=== PATIENT | female | born 1945 | race Caucasian/White ===

== ENCOUNTER 2020-11-14 11:49 | Emergency (ER) | payer MEDICARE, OTHER ==
[2020-11-14] MEDS: Sodium Chloride 0.9% 10 ML Syringe FLUSH PRN ×4 (11:57→13:25)
[2020-11-14 12:23] LABS: CHLORIDE,CL 102 mmol/L (98-107); SODIUM,NA 141 mmol/L (136-145)
[2020-11-14] MEDS ORDERED: levETIRAcetam 1,000 MG in Sodium Chloride 0.9% 100 ML IV ONE (12:37)
--- NOTE | 2020-11-14 12:58 | EDM.PDOC ---
ED HPI GENERAL MEDICAL PROBLEM - General Chief Complaint: Neurological Problem Stated Complaint: seizures Time Seen by Provider: 11/14/20 12:04 Source of Information: Reports: Patient, Family, Old Records History Limitations: Reports: No Limitations - History of Present Illness INITIAL COMMENTS - FREE TEXT/NARRATIVE: Patient referred to ER from [facility] due to history of recent uptick in seizures. Diagnosed with Epilepsy at age of 10 per self report. Reports absence seizures and myoclonic jerks. Was seen by Neuro at [place] last fall for her Epilepsy. Currently managed on combination of Primidone, Depakote, and Keppra. Daughter reports more frequent seizure activity noted over last few weeks. 15- 20 brief 30 second episodes yesterday witnessed by daughter were pt tensed up/clenched hands. Approx 10 more episodes witnessed today. Noted that patient was getting a bit confused with medications this past week and missed a few of her medications on some days. No reported other changes in health, such as trauma/signs of infection/fevers. Daughter cannot say if the recent witnessed seizure episodes are similar to ones experienced by patient in past as she r laura did not see her mother actually have seizures much at all previously. Other changes reported by patient include some numbness sensation in left lower leg/knee as well as some visual changes this past week. - Related Data Allergies Allergy/AdvReac Type Severity Reaction Status Date / Time No Known Allergies Allergy Verified 11/14/20 11:50 Home Meds: Home Meds Primidone [Mysoline] 500 mg PO BID 02/07/14 [History] levETIRAcetam [Keppra] 1,500 mg PO BID 02/07/14 [History] Cholecalciferol (Vitamin D3) [Vitamin D3] 02/09/14 [History] Multivitamin [Multi-Vitamin Daily] 02/09/14 [History] Vitamin B Complex 02/09/14 [History] Calcium Carbonate [Calcium] 600 mg PO DAILY 11/14/20 [History] Divalproex Sodium [Divalproex Sodium ER] 500 mg PO BID 11/14/20 [History] Vit A/Vit C/Vit E/Zinc/Copper [Preservision] 1 tab PO DAILY 11/14/20 [History] Past Medical History HEENT History: Reports: Impaired Vision, Other (See Below) Other HEENT History: wears reading glasses [employer] History: Reports: Neurological History: Reports: Seizure - Infectious Disease History Infectious Disease History: Reports: Chicken Pox, Measles, Mumps - Past Surgical History HEENT Surgical History: Reports: Cataract Surgery Other HEENT Surgeries/Procedures: rt eye cataract surgery GI Surgical History: Reports: Cholecystectomy Female Surgical History: Reports: Tubal Ligation Social & Family History - Tobacco Use Tobacco Use Status *Q: Never Tobacco User Second Hand Smoke Exposure: No - Caffeine Use Caffeine Use: Reports: Coffee, Soda, Tea Caffeine Use Comment: ice tea, diet coke and coffee - Recreational Drug Use Recreational Drug Use: No ED ROS GENERAL - Review of Systems Review Of Systems: Comprehensive ROS is negative, except as noted in HPI. ED EXAM, GENERAL - Physical Exam Exam: See Below Exam Limited By: No Limitations General Appearance: Alert, No Apparent Distress, Obese Eye Exam: Bilateral Eye: EOMI Ears: Normal External Exam, Hearing Grossly Normal Nose: No: Nasal Deformity, Nasal Swelling, Nasal Drainage Throat/Mouth: Normal Lips, Normal Voice, No Airway Compromise Head: Atraumatic, Normocephalic Neck: Supple, Non-Tender, Full Range of Motion Respiratory/Chest: No Respiratory Distress, Lungs Clear, Normal Breath Sounds, No Accessory Muscle Use, Chest Non-Tender Cardiovascular: Regular Rate, Rhythm GI/Abdominal: Normal Bowel Sounds, Soft, Non-Tender, No Distention (Female) Exam: Deferred Rectal (Female) Exam: Deferred Back Exam: No: CVA Tenderness (L), CVA Tenderness (R), Muscle Spasm, Paraspinal Tenderness, Vertebral Tenderness Extremities: Non-Tender, Normal Capillary Refill. No: Marry's Sign, Leg Pain, Limited Range of Motion, Increased Warmth, Mottled, Pallor, Redness Neurological: Alert, Oriented, CN II-XII Intact, Normal Cognition, Other (appears to have equal tone/strength on exam. +1 DTRs lower extremities. Subjective decreased sensation around left knee. ) Psychiatric: Normal Affect, Normal Mood Skin Exam: Warm, Dry, Intact, Normal Color Course - Vital Signs Last Recorded V/S: Last Vital Signs Temp 36.1 C 11/14/20 11:51 Pulse 82 11/14/20 12:10 Resp 20 11/14/20 12:10 BP 101/45 L 11/14/20 12:10 Pulse Ox 94 L 11/14/20 12:10 - Orders/Labs/Meds Orders: Active Orders 24 hr Category Date Time Status UA W/MICROSCOPIC [URIN] Stat Lab 11/14/20 12:08 Ordered Magnesium Sulfate/D5W [Magnesium Sulfate in D5W 100 Med 11/14/20 12:28 Ordered Premix] 1 gm Premix Bag 1 bag IV ONETIME Sodium Chloride 0.9% [Saline Flush] Med 11/14/20 11:50 Active 10 ml FLUSH ASDIRECTED PRN levETIRAcetam [Keppra] 1,000 mg Med 11/14/20 12:37 Active Sodium Chloride 0.9% [Normal Saline] 100 ml IV ONETIME Saline Lock Insert [OM.PC] Routine Oth 11/14/20 11:50 Ordered Medication Orders Magnesium Sulfate/Dextrose 1 (gm/ Premix) 100 mls @ 100 mls/hr IV ONETIME ONE Stop: 11/14/20 13:27 Levetiracetam 1,000 mg/ Sodium (Chloride) 110 mls @ 400 mls/hr IV ONETIME ONE Stop: 11/14/20 12:53 Sodium Chloride (Saline Flush) 10 ml FLUSH ASDIRECTED PRN PRN Reason: Keep Vein Open Last Admin: 11/14/20 11:57 Dose: 10 ml Documented by: NATIVIDAD Labs: Laboratory Tests 11/14/20 11/14/20 Range/Units 12:00 12:00 WBC 10.0 (4.0-10.2) K/uL RBC 4.22 (3.77-5.09) M/uL Hgb 13.4 (11.7-15.5) g/dL Hct 40.8 (34.0-46.0) % MCV 96.7 (84.0-98.0) fL MCH 31.8 (28.2-33.3) pg MCHC 32.8 (31.7-36.0) g/dL RDW 12.8 (11.2-14.1) % Plt Count 228 (150-350) K/uL Neut % (Auto) 49.2 (45.0-80.0) % Lymph % (Auto) 36.8 (10.0-50.0) % Porter % (Auto) 12.1 (2.0-14.0) % Eos % (Auto) 1.6 (0.0-5.0) % Baso % (Auto) 0.3 (0.0-2.0) % Neut # (Auto) 4.95 (1.40-7.00) K/uL Lymph # (Auto) 3.69 H (0.50-3.50) K/uL Porter # (Auto) 1.21 H (0.00-1.00) K/uL Eos # (Auto) 0.16 (0.00-0.50) K/uL Baso # (Auto) 0.03 (0.00-0.20) K/uL Sodium 141 (136-145) mmol/L Potassium 3.4 L (3.5-5.1) mmol/L Chloride 102 (98-107) mmol/L Carbon Dioxide 27.0 (21.0-32.0) mmol/L BUN 13 (7-18) mg/dL Creatinine 0.73 (0.51-1.17) mg/dL Est Cr Clr Drug Dosing 61.13 mL/min Estimated GFR (MDRD) > 60 mL/min Glucose 113 H (74-106) mg/dL Calcium 9.0 (8.5-10.1) mg/dL Magnesium 1.7 L (1.8-2.4) mg/dL Total Bilirubin 0.3 (0.2-1.0) mg/dL AST 22 (15-37) U/L ALT 25 (12-78) U/L Alkaline Phosphatase 90 (46-116) IU/L Total Protein 7.1 (6.4-8.2) g/dL Albumin 3.4 (3.4-5.0) g/dL Meds: Medications Generic Name Dose Route Start Last Admin Trade Name Freq PRN Reason Stop Dose Admin Magnesium Sulfate/Dextrose 1 100 mls @ 100 mls/hr 11/14/20 12:28 gm/ Premix IV 11/14/20 13:27 ONETIME ONE Levetiracetam 1,000 mg/ Sodium 110 mls @ 400 mls/hr 11/14/20 12:37 Chloride IV 11/14/20 12:53 ONETIME ONE Sodium Chloride 10 ml 11/14/20 11:50 11/14/20 11:57 Saline Flush FLUSH 10 ml ASDIRECTED PRN Administration Keep Vein Open Discontinued Medications Generic Name Dose Route Start Last Admin Trade Name Freq PRN Reason Stop Dose Admin Diazepam 10 mg 11/14/20 11:50 11/14/20 11:57 Valium IVPUSH 11/14/20 11:51 10 mg ONETIME ONE Administration - Re-Assessments/Exams Free Text/Narrative Re-Assessment/Exam: 11/14/20 13:08 Patient received 10mg IV Valium shortly after arrival. Was seizure-free until a brief 10sec episode of clenching noted around 1300. Basic labs obtained. OVerall unremarkable except for low magnesium. Call placed to [facility] and arrangements made for transfer of patient to their facility with as accepting MD. He requested IV Keppra prior to transfer. This along with magnesium replacement was ordered for patient. Additional dose of Valium given prior to transfer. Departure - Departure Time of Disposition: 13:11 Disposition: DC/Tfer to [facility] Condition: Good Clinical Impression: Epileptic seizures Qualifiers: Epilepsy type: unspecified Intractability: not intractable Status epilepticus: without status epilepticus Qualified Code(s): G40.909 - Epilepsy, unspecified, not intractable, without status epilepticus - Discharge Information *PRESCRIPTION DRUG MONITORING PROGRAM REVIEWED*: Not Applicable *COPY OF PRESCRIPTION DRUG MONITORING REPORT IN PATIENT VISHNU: Not Applicable Referrals: Codi Corrales MD [Primary Care Provider] - Sepsis Event Note (ED) - Evaluation Sepsis Screening Result: No Definite Risk - Focused Exam Vital Signs: Vital Signs Temp Pulse Resp BP Pulse Ox 11/14/20 12:10 82 20 101/45 L 94 L 11/14/20 12:00 85 20 129/59 L 93 L 11/14/20 11:51 36.1 C 83 18 147/62 H 95 11/14/20 11:49 36.1 C 82 18 147/62 H 95 - My Orders Last 24 Hours: My Active Orders 11/14/20 11:50 Sodium Chloride 0.9% [Saline Flush] 10 ml FLUSH ASDIRECTED PRN Saline Lock Insert [OM.PC] Routine 11/14/20 12:08 UA W/MICROSCOPIC [URIN] Stat 11/14/20 12:28 Magnesium Sulfate/D5W [Magnesium Sulfate in D5W 100 Premix] 1 gm Premix Bag 1 bag IV ONETIME 11/14/20 12:37 levETIRAcetam [Keppra] 1,000 mg Sodium Chloride 0.9% [Normal Saline] 100 ml IV ONETIME - Assessment/Plan Last 24 Hours: My Active Orders 11/14/20 11:50 Sodium Chloride 0.9% [Saline Flush] 10 ml FLUSH ASDIRECTED PRN Saline Lock Insert [OM.PC] Routine 11/14/20 12:08 UA W/MICROSCOPIC [URIN] Stat 11/14/20 12:28 Magnesium Sulfate/D5W [Magnesium Sulfate in D5W 100 Premix] 1 gm Premix Bag 1 bag IV ONETIME 11/14/20 12:37 levETIRAcetam [Keppra] 1,000 mg Sodium Chloride 0.9% [Normal Saline] 100 ml IV ONETIME
[2020-11-14] MEDS ORDERED: LORazepam 2 MG/ML SDV IVPUSH ONE (13:14)
== END 2020-11-14 13:35 ==
LOC: LL.ED 11:49
DX: G40.909 Epilepsy, unspecified, not intractable, without status epilepticus (principal); Z79.899 Other long term (current) drug therapy
CPT/HCPCS: 36415; 80053; 83735; 85025; 96374; 96375; 99284; 99285-25; J1953; J2060; J3360; J3475